=== PATIENT | female | born 1980 | race Caucasian/White ===

== ENCOUNTER 2023-07-16 14:21 | Emergency (ER) | payer OTHER ==
[~2023-07-16] VITALS: Ht 154.9 cm; Wt 73.0 kg
[2023-07-16 14:32] VITALS: BP 144/97; PULSE 98; RESP 20; TEMP 98; O2SAT 99
[2023-07-16] MEDS ORDERED: GABA-529 MT ×2 (16:49→19:14)
[2023-07-16] MEDS ORDERED: CYCL10TA21 MT (19:14)
== END 2023-07-16 17:07 | disposition home or self-care (01) ==
LOC: ER 15:03
DX: G47.00 Insomnia, unspecified (principal); M54.50 Low back pain, unspecified; Z98.890 Other specified postprocedural states
CPT/HCPCS: 99283